=== PATIENT | male | born 1990 | race African-American/Black ===

== ENCOUNTER 2019-03-29 20:30 | Emergency (ER) | payer MEDICAID ==
[~2019-03-29] VITALS: Ht 175.3 cm; Wt 86.0 kg
[2019-03-29 21:08] VITALS: BP 164/90
== END 2019-03-30 01:43 | disposition left against medical advice (07) ==
LOC: ER 20:30
DX: Z53.21 Procedure and treatment not carried out due to patient leaving prior to being seen by health care provider (principal)